=== PATIENT | male | born 1980 | race African-American/Black ===

== ENCOUNTER 2023-05-10 07:52 | Emergency (ER) | payer SELFPAY ==
[2023-05-10] MEDS ORDERED: Ondansetron 4 MG/2 ML SDV IVPUSH ONE (08:21)
[2023-05-10] MEDS ORDERED: Famotidine 20 MG/2 ML SDV IVPUSH ONE (08:21)
[2023-05-10] MEDS ORDERED: Sodium Chloride 0.9% 1,000 ML IV SCH (08:30)
[2023-05-10 08:55] LABS: BASOPHILS ABSOLUTE AUTO 0.03 K/uL (0.00-0.20); BASOPHILS PERCENT AUTO 0.5 % (0.0-1.0); EOSINOPHILS ABSOLUTE AUTO 0.33 K/uL (0.00-0.45); EOSINOPHILS PERCENT AUTO 5.7 % (0.0-6.0); HEMATOCRIT 42.7 % (42.0-52.0); HEMOGLOBIN 14.3 g/dL (14.0-18.0); LYMPHOCYTES ABSOLUTE AUTO 3.33 K/uL (1.00-4.80); MEAN CORPUSCULAR HEMOGLOBIN 29.5 pg (28.0-32.0); MEAN CORPUSCULAR HGB CONC 33.5 g/dL (32.0-36.0); MEAN CORPUSCULAR VOLUME 88.2 fL (83.0-99.0); MONOCYTES ABSOLUTE AUTO 0.39 K/uL (0.00-0.80); MONOCYTES PERCENT AUTO 6.7 % (0.0-8.0); NEUTROPHILS ABSOLUTE AUTO 1.76 K/uL (1.80-7.70); NEUTROPHILS PERCENT AUTO 30.1 % (41.0-71.0); PLATELET COUNT,PLT 249 K/uL (150-400); RED BLOOD CELL COUNT 4.84 M/uL (4.52-5.90); WHITE BLOOD CELL COUNT,WBC 5.84 K/uL (3.9-11.3)
[2023-05-10 09:13] LABS: A/G RATIO 1.1 (0.9-1.6); ALBUMIN 3.9 g/dL (3.4-5.0); BILIRUBIN TOTAL 0.2 mg/dL (0.2-1.0); CALCIUM 8.9 mg/dL (8.5-10.1); CARBON DIOXIDE,CO2 27.6 mmol/L (21.0-32.0); CREATININE 1.2 mg/dL (0.8-1.3); EST CRCL DRUG DOSING (CG) 89.7 mL/min; POTASSIUM,K 4.7 mmol/L (3.5-5.1); PROTEIN TOTAL,TP 7.3 g/dL (6.4-8.2)
[2023-05-10 09:47] LABS: APPEARANCE,URINE CLEAR; BILIRUBIN,URINE NEGATIVE (NEGATIVE); COLOR,URINE YELLOW; GLUCOSE,URINE NEGATIVE (NEGATIVE); KETONES,URINE NEGATIVE (NEGATIVE); LEUKOCYTE ESTERASE,URINE NEGATIVE (NEGATIVE); NITRITE,URINE POSITIVE (NEGATIVE); OCCULT BLOOD,URINE NEGATIVE (NEGATIVE); PROTEIN,URINE NEGATIVE (NEGATIVE); UROBILINOGEN,URINE 0.2 EU/dL (<2.0)
[2023-05-10 10:02] LABS: BACTERIA,URINE FEW (NEGATIVE); EPITHELIAL CELLS,URINE OCCASIONAL (NONE-FEW); RBC,URINE 0-2 (0-2/HPF); WBC,URINE 0-3 (0-5/HPF)
[2023-05-10] MEDS ORDERED: cefTRIAXone 1 GM in Sodium Chloride 0.9% 50 ML IV ONE (10:05)
== END 2023-05-10 10:52 | disposition home or self-care (01) ==
LOC: MW.ED 07:52
DX: K58.0 Irritable bowel syndrome with diarrhea (principal); N30.00 Acute cystitis without hematuria
CPT/HCPCS: 36415; 80053; 81001; 83690; 85025; 87086; 96361; 96365; 96375; 99284; J0696; J2405; J3490; J7030

== ENCOUNTER 2023-07-17 04:31 | Emergency (ER) | payer BC ==
[2023-07-17] MEDS ORDERED: Ketorolac 30 MG/ML SDV IM ONE (04:53)
[2023-07-17] MEDS ORDERED: Acetaminophen 325 MG Tab PO ONE (04:54)
== END 2023-07-17 06:08 | disposition home or self-care (01) ==
LOC: MW.ED 04:31
DX: M25.461 Effusion, right knee (principal)
CPT/HCPCS: 73562; 96372; 99283; A9270; J1885

== ENCOUNTER 2023-07-19 20:14 | Emergency (ER) | payer BC ==
[2023-07-19] MEDS ORDERED: Lidocaine 1% 5 ML VIAL INJECT ONE (20:27)
[2023-07-19 20:57] LABS: BODY FLUID TYPE SYN
[2023-07-19 21:40] LABS: APPEARANCE,BODY FLUID CLEAR; COLOR,BODY FLUID YELLOW; POLYMORPHONUCLEAR, BODY FLUID 16.4 %; RBC,BODY FLUID < 3000 /uL; WBC BODY FLUID 740 /uL
[2023-07-19 21:41] LABS: MONONUCLEAR, BODY FLUID 83.6 %
[2023-07-19 22:38] LABS: GLUCOSE,BODY FLUID 99 mg/dL
== END 2023-07-19 22:05 | disposition home or self-care (01) ==
LOC: MW.ED 20:14
DX: M25.461 Effusion, right knee (principal)
CPT/HCPCS: 20610; 82945; 87070; 87205; 89050; 89060; 99283; J3490

== ENCOUNTER 2023-09-22 09:39 | Day surgery (SDC) | payer BC ==
[~2023-09-22 09:39] MED LIST: Albuterol 0.083% 2.5 MG/3 ML Neb Soln NEB PRN; HYDROmorphone 1 MG/ML Syringe IVPUSH PRN; Metoclopramide 10 MG/2 ML SDV IVPUSH PRN; Morphine 2 MG/ML SYRINGE IVPUSH PRN; Naloxone 0.4 MG/ML SDV IVPUSH PRN; Ondansetron 4 MG/2 ML SDV IVPUSH PRN; ceFAZolin 2 GM in Sodium Chloride 0.9% 50 ML IV ONE; droPERidol 5 MG/2 ML SDV IVPUSH PRN; fentaNYL 50 MCG/ML SDV IVPUSH PRN
[2023-09-22] MEDS: Lactated Ringers 1,000 ML IV SCH (10:11)
[2023-09-22] MEDS ORDERED: fentaNYL 250 MCG/5 ML SDV ONE (11:36)
[2023-09-22] MEDS ORDERED: propofoL 50 ML ONE (11:36)
[2023-09-22] MEDS ORDERED: Rocuronium Bromide 50 MG/5 ML Syringe ONE (11:38)
[2023-09-22] MEDS ORDERED: Ondansetron 4 MG/2 ML SDV ONE ×2 (12:22→12:52)
[2023-09-22] MEDS ORDERED: Lidocaine 2% 5 ML SDV ONE (12:25)
[2023-09-22] MEDS ORDERED: ceFAZolin 2 GM Vial ONE (12:29)
[2023-09-22] MEDS ORDERED: Bupivacaine 0.5%/EPINEPHrine 1:200,000 30 ML SDV ONE (12:44)
[2023-09-22] MEDS ORDERED: Sugammadex Sodium 200 MG/2 ML VIAL IV ONE (12:50)
[2023-09-22] MEDS ORDERED: Ketorolac 30 MG/ML SDV ONE (12:50)
[2023-09-22] MEDS ORDERED: Esmolol 100 MG/10 ML SDV ONE ×2 (12:50→13:01)
[2023-09-22] MEDS ORDERED: Morphine 10 MG/ML SDV ONE (12:56)
[2023-09-22] MEDS: Acetaminophen/HYDROcodone 325-5 MG Tab PO ONE (14:55)
== END 2023-09-22 15:05 | disposition home or self-care (01) ==
LOC: MW.SDS 09:39
PROVIDERS: ATTEND Orthopaedic Surgery
DX: S83.241A Other tear of medial meniscus, current injury, right knee, initial encounter (principal); F17.210 Nicotine dependence, cigarettes, uncomplicated; E66.9 Obesity, unspecified; Z68.30 Body mass index [BMI] 30.0-30.9, adult; Z90.89 Acquired absence of other organs; X58.XXXA Exposure to other specified factors, initial encounter
CPT/HCPCS: 29881; A9270; J0131; J0690; J1885; J2270; J2405; J2704; J3010; J3490; J7120

== ENCOUNTER 2024-08-16 09:11 | Emergency (ER) | payer BC, OTHER ==
[2024-08-16] MEDS: Ibuprofen 600 MG Tab PO ONE (11:38)
== END 2024-08-16 11:40 | disposition home or self-care (01) ==
LOC: MW.ED 09:11
DX: T33.531A Superficial frostbite of right finger(s), initial encounter (principal); Z75.8 Other problems related to medical facilities and other health care; X58.XXXA Exposure to other specified factors, initial encounter
CPT/HCPCS: 99283; A9270